=== PATIENT | female | born 1940 | race Caucasian/White ===

== ENCOUNTER 2017-11-06 09:02 | Day surgery (SDC) | payer OTHER ==
[~2017-11-06] VITALS: Ht 160 cm; Wt 107.0 kg
[~2017-11-06 09:02] MED LIST: ACET325 PO; Advil200 M1 PO; Icaps Areds Fo1 EACH PO; Multivitamin1 EAC1 PO; TOCO400 PO; Vitamin C100 MG
== END 2017-11-06 11:55 | disposition home or self-care (01) ==
LOC: ORSCSDS 09:02
DX: Z12.11 Encounter for screening for malignant neoplasm of colon (principal); K62.1 Rectal polyp; D12.2 Benign neoplasm of ascending colon; D12.4 Benign neoplasm of descending colon; D12.3 Benign neoplasm of transverse colon; D12.0 Benign neoplasm of cecum; Z86.010 Personal history of colon polyps; K57.30 Diverticulosis of large intestine without perforation or abscess without bleeding; Z80.0 Family history of malignant neoplasm of digestive organs; E66.01 Morbid (severe) obesity due to excess calories; Z68.41 Body mass index [BMI] 40.0-44.9, adult
CPT/HCPCS: 88305; J7120

== ENCOUNTER → 2019-04-23 | Outpatient (CLI) | payer OTHER | END | disposition home or self-care (01) | LOC: PLD 11:52 → LAB SHORT 11:52 | DX: L57.0 Actinic keratosis (principal) | CPT/HCPCS: 88305 ==

== ENCOUNTER → 2021-01-19 | Outpatient (CLI) | payer OTHER | END | disposition home or self-care (01) | LOC: LAB SHORT 15:02 → LAB 15:02 | DX: L57.0 Actinic keratosis (principal) | CPT/HCPCS: 88305 ==

== ENCOUNTER 2024-06-24 13:27 | Day surgery (SDC) | payer OTHER ==
[~2024-06-24] VITALS: Ht 154.9 cm; Wt 111.9 kg
[~2024-06-24 13:27] MED LIST changes: +HYDCHL12.5 PO; +HYDCHL25; +Lactated Ringer's 1,000 ML IV ONE
[2024-06-24] MEDS ORDERED: GLUCHON (13:55)
[2024-06-24] MEDS ORDERED: Lactated Ringer's 1,000 ML IV ONE (14:36)
[2024-06-24] MEDS ORDERED: propofoL 50 ML IV ONE (14:42)
[2024-06-24 15:58] VITALS: BP 127/77
== END 2024-06-24 15:57 | disposition home or self-care (01) ==
LOC: ORSCSDS 13:27
PROVIDERS: Specialist
PROC: 0DBN8ZX Excision of Sigmoid Colon, Via Natural or Artificial Opening Endoscopic, Diagnostic (ICD-10-PCS; principal; 2024-06-24 15:00)
PROC: 0DBL8ZX Excision of Transverse Colon, Via Natural or Artificial Opening Endoscopic, Diagnostic (ICD-10-PCS; principal; 2024-06-24 15:00)
DX: Z12.11 Encounter for screening for malignant neoplasm of colon (principal); Z86.0101 Personal history of adenomatous and serrated colon polyps; Z80.0 Family history of malignant neoplasm of digestive organs; D12.3 Benign neoplasm of transverse colon; D12.5 Benign neoplasm of sigmoid colon; K57.30 Diverticulosis of large intestine without perforation or abscess without bleeding; K64.8 Other hemorrhoids; E78.5 Hyperlipidemia, unspecified; L57.0 Actinic keratosis; M85.80 Other specified disorders of bone density and structure, unspecified site; I12.9 Hypertensive chronic kidney disease with stage 1 through stage 4 chronic kidney disease, or unspecified chronic kidney disease; N18.2 Chronic kidney disease, stage 2 (mild); E66.01 Morbid (severe) obesity due to excess calories; Z68.42 Body mass index [BMI] 45.0-49.9, adult; Z79.82 Long term (current) use of aspirin; Z79.899 Other long term (current) drug therapy
CPT/HCPCS: 88305; J2704; J7120